=== PATIENT | male | born 1985 | race Caucasian/White ===

== ENCOUNTER 2020-10-08 13:59 | Emergency (ER) | payer OTHER, SELFPAY ==
[2020-10-08 14:19] VITALS: BP 118/81; PULSE 87; RESP 16; TEMP 36.8; O2SAT 97; BMI 36.9
--- NOTE | 2020-10-08 14:28 | W.ED.EXTPRO ---
HPI - Extremity Problem General: Chief complaint: Extremity Injury, Upper Stated complaint: Nail Went into arm/Wanting to check for infection Time Seen by Provider: 10/08/20 14:27 Source: patient Mode of arrival: ambulatory Limitations: no limitations History of Present Illness: HPI Narrative: Patient is a 35 yo male here for evaluation following a nail puncture to his L forearm that occurred just a few hours ago while he was demolishing an old barn. States a board fell onto his arm that had an old nail stuck in it. States the nail punctured on the dorsum of his forearm. Nail/board was removed by patient. Tetanus is not UTD. MD Complaint: extremity pain and extremity swelling Onset (ago): hour(s) Pain Consistency: constant Location: left and upper extremity Radiation: none Relieving factors: immobilization Exacerbating factors: range of motion Associated symptoms: Reports no associated symptoms; Deny fever(s) Review of Systems Const: Denies: fever(s), chills, body aches, fatigue or malaise GI: Denies: nausea or vomiting Musc: Reports: extremity pain and extremity swelling; Denies: joint pain or joint swelling Neuro: Denies: numbness in extremities, weakness in extremities or sensory changes PFSH ED PFSH: Social History (Updated 01/22/20 @ 12:07 by Justine Lockett LPN) Smoking and tobacco status: never smoked Alcohol intake: never Current gender identity: Male Physical Exam Const: COMMON NORMALS: no acute distress, average body habitus, patient oriented x3, no limitations, healthy appearing, alert and well nourished Extremity: OTHER: small puncture kiesha to dorsal mid forearm; very tender all around puncture site; swelling noted; no firmness noted; sensory intact; pain is worse with ROM of his digits; pain is not out of proportion to exam; extremity is warm with normal radial pulse and cap refill Neuro: COMMON NORMALS: patient oriented x3, moves all extremities, no focal motor deficits and no sensory deficits noted SENSORIUM/ORIENTATION: Yes alert Course Vital Signs: Vital signs: Vital Signs Temperature 98.2 F 10/08/20 14:19 Pulse Rate 81 10/08/20 15:31 Respiratory Rate 16 10/08/20 15:31 Blood Pressure 129/83 10/08/20 15:31 Pulse Oximetry 98 10/08/20 15:31 MDM - Extremity (Nontraumatic) MDM Narrative: Medical decision making narrative: Extremity is neurovascularly intact. He has no signs of acute infection or compartment syndrome at this time. XR normal. Tetanus was updated. He will be placed on antibiotics. Wound care discussed at home. Strict return to ED precautions given. Imaging Data^: XR L forearm: Radiologist's impression: [address] [place] [address] XRay Report Signed Patient: Simone Greenfield Unit #: [id number] : 1985 Age/Sex: 35 / M ADM Date: 10/08/20 Loc: ER Room/Bed: Attending Dr: Ordering Provider/Ordering MD: Melanie Tidwell Date of Service: 10/08/20 Procedure(s): XR forearm LT 2V [id number] Accession Number(s): [id number] Report Number: [id number] WS: [id number] Left forearm, AP and lateral views, 10/08/2020 Clinical Data: puncture wound/pain Comparison: None. Findings: No fracture or dislocations are seen. The soft tissues show minimal air on the dorsal distal left forearm. The visualized left wrist and elbow show no obvious abnormalities. No radiopaque foreign body is seen. XR/XR forearm LT 2V [id number] Impression: Negative for fracture or radiopaque foreign body. Dictated By: Kecia Hollins MD Signed By: Kecia Hollins MD Signed Date/Time: 10/08/201553 DD/ 51 Discharge Plan Discharge Patient Disposition: Home Clinical Impression: Puncture wound of forearm, left Qualifiers: Encounter type: initial encounter Qualified Code(s): S51.832A - Puncture wound without foreign body of left forearm, initial encounter Condition: Stable Prescriptions: New cephalexin 500 mg capsule 500 mg PO Q6H 7 Days Qty: 28 RF: 0 No Action levothyroxine 25 mcg capsule 25 mcg PO ONCE RF: 0 zolpidem [Ambien] 5 mg tablet 5 mg PO DAILY RF: 0 bupropion HCl 75 mg tablet 75 mg PO TID RF: 0 pantoprazole 20 mg tablet,delayed release (DR/EC) 20 mg PO DAILY RF: 0 Discharge Orders: Discharge ED (Routine); Ordered 10/08/20 Ordered By: Melanie Tidwell Referrals: Kei Flowers [Primary Care Provider] - Patient Instructions: Puncture Wound (ED) Activity Restrictions/Additional Instructions: As we discussed please fill and begin your antibiotics immediately. You need to return to the emergency department for any redness, swelling, drainage, increased pain, streaking up your arm, fevers. You also need to return for worsening swelling, extreme swelling/tightness, loss of sensation or tingling to your extremity, severe pain with wiggling of your fingers, any coldness or loss of sensation or pallor/paleness to your extremity. Coding Level of Care Code ED Flute Polisher for Chg Fwd Exam Expanded Problem Focused
--- NOTE | 2020-10-08 14:35 | XR_ITS ---
WS: [id number] Left forearm, AP and lateral views, 10/08/2020 Clinical Data: puncture wound/pain Comparison: None. Findings: No fracture or dislocations are seen. The soft tissues show minimal air on the dorsal distal left for earm. The visualized left wrist and elbow show no obvious abnormalities. No radiopaque foreign body is seen. XR/XR forearm LT 2V [id number] Impression: Negative for fracture or radiopaque foreign body.
[2020-10-08 14:56] VITALS: BP 118/88; PULSE 87; RESP 16; O2SAT 99
[2020-10-08] MEDS: tetanus-diphtheria tox (adult) 0.5 mL SDV IM (15:00)
[2020-10-08 15:31] VITALS: BP 129/83; PULSE 81; RESP 16; O2SAT 98
== END 2020-10-08 16:17 | disposition home or self-care (01) ==
PROVIDERS: Emergency Provider Physician Assistant; PCP Family Medicine
DX: S51.832A Puncture wound without foreign body of left forearm, initial encounter (principal); W45.0XXA Nail entering through skin, initial encounter; Z23 Encounter for immunization
CPT/HCPCS: 73090; 90471; 90714; 99283

== ENCOUNTER 2022-09-28 09:27 | Outpatient (CLI) | payer OTHER, SELFPAY ==
--- NOTE | 2022-09-28 09:36 | US_ITS ---
WS: [id number] Gallbladder and right upper quadrant ultrasound, 09/28/2022 Clinical Data: RUQ PAIN/ELEVATED LIVER ENZYMES Comparison: None. Findings: The gallbladder shows no sludge or stone. The wall measures 0.2 cm with no pericholecystic fluid. The common bile duct is 0.5 cm and there are no intrahepatic ductal abnormalities. Liver shows no cysts, masses or dilated intrahepatic ducts. The pancreas is not obscured by overlying bowel gas and no cyst, pseudocyst, or evidence of pancreati tis is noted. Right kidney measures 11.4 cm and no cyst, masses or hydronephrosis can be seen. The aorta and inferior vena cava show no vascular abnormalities. US/US abdomen limited [id number] Impression: Negative gallbladder and right upper quadrant ultrasound.
== END 2022-09-28 09:28 | disposition home or self-care (01) ==
LOC: RAD 09:30
PROVIDERS: PCP Family Medicine; Visit Provider Family Medicine
DX: R10.11 Right upper quadrant pain (principal); R94.5 Abnormal results of liver function studies
CPT/HCPCS: 76705

== ENCOUNTER 2023-11-02 23:20 | Emergency (ER) | payer OTHER, SELFPAY ==
[2023-11-02 23:22] VITALS: BP 166/122; PULSE 116; RESP 19; TEMP 36.7; O2SAT 97; BMI 34.2
--- NOTE | 2023-11-02 23:27 | XRR_ITS ---
PROCEDURE INFORMATION: Exam: XR Chest Exam date and time: 11/02/2023 11:39 PM Age: 38 years old Clinical indication: Pain; Chest pressure; Additional info: Chest pain TECHNIQUE: Imaging protocol: Radiologic exam of the chest. Views: 1 view. COMPARISON: No relevant prior studies available. FINDINGS: Lungs: The lungs are clear. No pulmonary consolidation. Pleural spaces: No pleural effusion or pneumothorax. Heart/Mediastinum: The cardiomediastinal silhouette is within normal limits. Bones/joints: No acute osseous abnormalities are seen. XR/XR chest 1V portable [id number] IMPRESSION: No acute cardiopulmonary disease.
--- NOTE | 2023-11-02 23:28 | ECG_ITS ---
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 Measurements Intervals [place] Rate: 103 P: 47 MD: 152 QRS: -29 QRSD: 100 T: 35 QT: 309 QTc: 406 Interpretive Statements SINUS TACHYCARDIA INCOMPLETE RIGHT BUNDLE BRANCH BLOCK [90+ ms QRS DURATION, TERMINAL R IN V1/V2, 40+ ms S IN I/aVL/V4/V5/V6] SEPTAL MYOCARDIAL INFARCTION , OF INDETERMINATE AGE [40+ ms Q WAVE IN V1/V2] No previous ECG available for comparison Electronically Signed On 11-03-2023 0:39:22 CDT by Prasad Cristobal M.D. [id number]
[2023-11-02] MEDS: aspirin 81 mg Chew Tablet 324 MG PO (23:35)
[2023-11-02 23:46] LABS: Basophils # 0.1 10^3/uL (0.0-0.1); Basophils % 0.7 %; Eosinophils # 0.2 10^3/uL (0.0-0.8); Eosinophils % 2.3 %; Hematocrit 58.9 % (37-53); Lymphocytes # 2.6 10^3/uL (0.8-4.8); Lymphocytes % 31.4 %; Mean Corpuscular HGB Conc 32.6 g/dL (30-55); Mean Corpuscular Hemoglobin 30.1 pg (27-33); Mean Corpuscular Volume 92.3 fl (82-101); Mean Platelet Volume 9.4 fL (7.4-10.4); Neutrophils # 4.43 10^3/uL (1.8-7.7); Neutrophils % 53.4 %; Nucleated Red Blood Cells % 0 %; Platelet Count 236 10^3/cmm (157-399); Red Blood Count 6.38 10^6/uL (3.85-5.65); Red Cell Distribution Width 14.6 % (12.1-15.1); White Blood Count 8.31 10^3/uL (3.29-11.43)
[2023-11-02] MEDS: nitroglycerin 0.4 mg sublingual Tablet 0.400000000000000022 MG SUBLINGUAL (23:54)
[2023-11-03 00:03] VITALS: BP 143/107; PULSE 94; O2SAT 95
[2023-11-03 00:05] LABS: Troponin(5th) Baseline 7 ng/L (0-15)
[2023-11-03 00:06] LABS: Alanine Aminotransferase 27 U/L (0-41); Albumin Level 4.6 g/dL (3.5-5.2); Alkaline Phosphatase 88 U/L (40-130); Anion Gap 15.9 (5-19); Aspartate Amino Transferase 24 U/L (0-40); Blood Urea Nitrogen 10 mg/dL (6-20); C Reactive Protein 3.6 mg/L (0.0-4.9); Calcium 9.5 mg/dL (8.5-10.5); Carbon Dioxide 24 mmol/L (22-29); Chloride 106 mmol/L (98-107); Creatinine Clr Calc Pharmacy 116.5669; Globulin 2.6 g/dL (1.3-4.6); Glomerular Filtration Rate 75.3 mL/min (90-130); Glucose 73 mg/dL (65-115); Lipase 52 U/L (13-60); Osmolality Calculated 292 mOsm/kg (285-295); Potassium 3.9 mmol/L (3.5-5.1); Sodium 142 mmol/L (136-145); Total Bilirubin 0.3 mg/dL (0.15-1.2); Total Protein 7.2 g/dL (6.6-8.7)
[2023-11-03 00:20] LABS: D Dimer 0.23 ug/mLFEU (0-0.59)
[2023-11-03 00:33] VITALS: BP 134/89; PULSE 87; O2SAT 93
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
[2023-11-03 01:00] VITALS: BP 138/99; PULSE 112; O2SAT 94
--- NOTE | 2023-11-03 01:28 | ECG_ITS ---
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 Measurements Intervals [place] Rate: 77 P: 26 MS: 160 QRS: -14 QRSD: 104 T: 30 QT: 346 QTc: 392 Interpretive Statements SINUS RHYTHM WITH SINUS ARRHYTHMIA INCOMPLETE RIGHT BUNDLE BRANCH BLOCK [90+ ms QRS DURATION, TERMINAL R IN V1/V2, 40+ ms S IN I/aVL/V4/V5/V6] NONSPECIFIC ST ELEVATION [0.05+ mV ST ELEVATION] Compared to ECG 11/02/2023 23:24:15 ST (T wave) deviation now present Sinus tachycardia no longer present Myocardial infarct finding no longer present Electronically Signed On 11-03-2023 8:37:20 CDT by Garrick Davila M.D. [id number]
[2023-11-03 02:00] VITALS: BP 125/85; PULSE 77; RESP 16; O2SAT 95
[2023-11-03 02:00] LABS: Glucose Urine UA Norm (Normal); Protein Urine Neg (Negative); Specific Gravity, Urine 1.025 (1.005-1.030); Urine Appearance Clear (CLEAR); Urine Color Yellow (Yellow); pH Urine 6 (5-7)
[2023-11-03 02:01] LABS: Add Urine Culture? No; Bilirubin Urine 1+ (Negative); Blood Urine Neg (Negative); Ketones Urine 1+ (Negative); Leukocyte Esterase Urine Negative (Negative); Mucus Urine 1+ /hpf; Nitrate Urine Negative (Negative); RBC Urine 0-4 /hpf (0-2); Urobilinogen Urine Neg (Negative)
[2023-11-03 02:05] LABS: Amphetamines Screen Urine Negative (Negative); Barbiturates Screen Urine Negative (Negative); Benzodiazepines Screen Urine Negative (Negative); Cocaine Screen Urine Negative (Negative); Opiate Screen Urine Negative (Negative); PCP Screen Urine Negative (Negative); THC Screen Urine Negative (Negative)
[2023-11-03 03:13] VITALS: BP 112/86; PULSE 70; O2SAT 98
== END 2023-11-03 03:16 | disposition home or self-care (01) ==
PROVIDERS: Emergency Provider Emergency Medicine; PCP Family Medicine
DX: R07.89 Other chest pain (principal); I10 Essential (primary) hypertension; D75.1 Secondary polycythemia
CPT/HCPCS: 71045; 80053; 80306; 81001; 83690; 84484; 85025; 85378; 86140; 93005; 99285

== ENCOUNTER 2024-08-11 03:04 | Emergency (ER) | payer OTHER, SELFPAY ==
--- NOTE | 2024-08-11 03:20 | XRR_ITS ---
PROCEDURE INFORMATION: Exam: XR Chest Exam date and time: 08/11/2024 3:22 AM Age: 39 years old Clinical indication: Cough and shortness of breath; Chest discomfort with cough and SOB TECHNIQUE: Imaging protocol: Radiologic exam of the chest. Views: 1 view. COMPARISON: CR XR chest 1V portable [id number] 11/02/2023 11:39 PM FINDINGS: Lungs: Unremarkable. No consolidation. Pleural spaces: Unremarkable. No pleural effusion. No pneumothorax. Heart/Mediastinum: Unremarkable. No cardiomegaly. Bones/joints: Unremarkable. XR/XR chest 1V portable [id number] IMPRESSION: No acute findings.
--- NOTE | 2024-08-11 03:21 | W.ED.SOB ---
HPI - SOB/Dyspnea General: Chief Complaint: Shortness of Breath/Dyspnea Stated Complaint: SOB CP Time Seen by Provider: 08/11/24 03:19 History of Present Illness: HPI Narrative: Patient presents with acute respiratory symptoms that started late last night and continued into this morning. Patient reports waking up with difficulty breathing. There is a history of chronic cough, which is a persistent symptom. Patient has a known history of COPD. Recent exposure history is significant for home renovation activities, specifically bathroom remodeling with demolition work over the past two weeks, with the most recent exposure yesterday and the day before. Patient uses CPAP machine but compliance is inconsistent. No history of asthma reported. No history of fistula. Denies swelling symptoms. Patient does not take Albuterol or other respiratory medications per report. Related Data Previous Rx's ?Medication ?Instructions ?Recorded colchicine 0.6 mg tablet 0.6 mg PO DAILY #3 tabs 07/30/24 prednisone 10 mg tablet 30 mg (3 x 10 mg) PO DAILY 5 days 07/30/24 #15 tabs albuterol sulfate 90 mcg/actuation 2 inh inhalation Q6H PRN shortness 08/11/24 aerosol inhaler (Ventolin HFA) of breath or wheezing #8.5 grams prednisone 20 mg tablet 20 mg PO BID 5 days #10 tabs 08/11/24 Allergies Allergy/AdvReac Type Severity Reaction Status Date / Time No Known Allergies Allergy Verified 07/30/24 09:32 [facility] PFSH: Social History Smoking and tobacco/nicotine status: never used tobacco/nicotine Alcohol intake: never Substance/Drug Use: never Current gender identity: Male Physical Exam Const: COMMON NORMALS: patient oriented x3, alert and well nourished HENMT: COMMON NORMALS: normocephalic HEAD & SCALP: normocephalic Eye: COMMON NORMALS: Equal, round and reactive pupils present, EOMs intact bilaterally and conjunctivae normal CONJUNCTIVA: Yes conjunctivae normal PUPIL: Yes Equal, round and reactive pupils present Neck/C-Spine: COMMON NORMALS: full ROM, no lymphadenopathy, supple, no meningeal signs, no JVD and Thyroid normal THYROID: Thyroid normal Chest: COMMONS NORMALS: normal inspection of the chest and normal palpation of entire chest wall Resp: OTHER: Wheezing throughout Cardio: COMMON NORMALS: no JVD GI: COMMON NORMALS: Normal to inspection, nondistended, normoactive bowel sounds present, Soft to palpation, non-tender, No hepatosplenomegaly present, no masses and no bruits PALPATION: Yes Soft to palpation and Yes No hepatosplenomegaly present : COMMON NORMALS: Yes no CVA tenderness BLADDER/KIDNEY EXAM: Yes no CVA tenderness Back/Pelvis: COMMON NORMALS: no CVA tenderness Extremity: COMMON NORMALS: normal to inspection, full ROM, capillary refill normal, no joint enlargement, no clubbing, cyanosis or edema, no calf tenderness and no pedal edema Neuro: COMMON NORMALS: patient oriented x3 SENSORIUM/ORIENTATION: Yes alert MENINGEAL SIGNS: Yes no meningeal signs Skin: COMMON NORMALS: no rashes or lesions noted, turgor normal and no jaundice GENERAL SKIN EXAM: no rashes or lesions noted and turgor normal Course Vital Signs: Vital signs: Vital Signs Temperature 98 F 08/11/24 03:29 Pulse Rate 99 08/11/24 03:39 Respiratory Rate 18 08/11/24 03:39 Blood Pressure 128/107 08/11/24 03:29 Pulse Oximetry 100 08/11/24 03:39 Oxygen Delivery Me thod Room Air 08/11/24 03:39 MDM - SOB/Dyspnea Medical Decision Making 1. Acute COPD Exacerbation, likely triggered by renovation dust exposure: - Chest X-ray ordered to rule out pneumonia or other acute processes - Plan for IV anti-inflammatory medication administration - Will reassess after initial interventions 2. Poor CPAP Compliance: - Will discuss importance of consistent CPAP usage - Consider referral for COPD management optimization 3. Environmental Exposure: - Patient counseling on importance of dust protection during renovation activities - Recommend wearing appropriate PPE during future renovation work Lab Data 08/11/24 03:27 08/11/24 03:27 Labs/Radiology: Laboratory Results WBC 10.26 10^3/uL (3.29-11.43) 08/11/24 03:27 RBC 5.61 10^6/uL (3.85-5.65) 08/11/24 03:27 Hgb 17.00 g/dL (11.27-16.99) H 08/11/24 03:27 Hct 49.7 % (37-53) 08/11/24 03:27 MCV 88.6 fl (82-101) 08/11/24 03: MCH 30.3 pg (27-33) 08/11/24 03: MCHC 34.2 g/dL (30-55) 08/11/24 03: RDW 14.9 % (12.1-15.1) 08/11/24 03:27 Plt Count 205 10^3/cmm (157-399) 08/11/24 03: MPV 9.4 fL (7.4-10.4) 08/11/24 03:27 Neut % (Auto) 72.9 % 08/11/24 03:27 Lymph % (Auto) 16.7 % 08/11/24 03:27 [place] % (Auto) 7.9 % 08/11/24 03:27 Eos % (Auto) 1.8 % 08/11/24 03: Baso % (Auto) 0.6 % 08/11/24 03: Neut # (Auto) 7.49 10^3/uL (1.8-7.7) 08/11/24 03:27 Lymph # (Auto) 1.7 10^3/uL (0.8-4.8) 08/11/24 03:27 [place] # (Auto) 0.8 10^3/uL (0.2-0.9) 08/11/24 03:27 Eos # (Auto) 0.2 10^3/uL (0.0-0.8) 08/11/24 03: Baso # (Auto) 0.1 10^3/uL (0.0-0.1) 08/11/24 03:27 Nucleated RBC % (auto) 0 % 08/11/24 03: Nucleated RBCs # 0.0 /100WBC 08/11/24 03: Sodium 139 mmol/L (136-145) 08/11/24 03: Potassium 3.8 mmol/L (3.5-5.1) 08/11/24 03: Chloride 104 mmol/L (98-107) 08/11/24 03:27 Carbon Dioxide 22 mmol/L (22-29) 08/11/24 03:27 Anion Gap 16.8 (5-19) 08/11/24 03:27 BUN 15 mg/dL (6-20) 08/11/24 03:27 Creatinine 1.2 mg/dL (0.7-1.2) 08/11/24 03:27 GFR Calculation 67.8 mL/min (90-130) L 08/11/24 03:27 Glucose 114 mg/dL (65-115) 08/11/24 03:27 Calculated Osmolality 290 mOsm/kg (285-295) 08/11/24 03:27 Calcium 9.3 mg/dL (8.5-10.5) 08/11/24 03:27 XR interpretation done by ED provider, pending radiology final review Discharge Plan Discharge Patient Disposition: Home Clinical Impression: Acute exacerbation of chronic obstructive airways disease Condition: Stable Prescriptions: New albuterol sulfate [Ventolin HFA] 90 mcg/actuation HFA aerosol inhaler 2 inh inhalation Q6H PRN (Reason: shortness of breath or wheezing) Qty: 8.5 1RF prednisone 20 mg tablet 20 mg PO BID 5 Days Qty: 10 0RF No Action colchicine 0.6 mg tablet 0.6 mg PO DAILY Qty: 3 0RF prednisone 10 mg tablet 30 mg PO DAILY 5 Days Qty: 15 0RF Rx Instructions: start this medicine tomorrow, Monday Discharge Orders: Discharge ED (Routine); Ordered 08/11/24 Ordered By: Dimas Gooden Referrals: Justine Wiseman MD [Primary Care Provider] - Discharge Diet: Usual diet Discharge Activity: Limit activity as instructed Patient Instructions: Opioid Safety, Pain Management Activity Restrictions/Additional Instructions: 1. Take Rx as directed. 2. Follow up with PCP and / or Pulmonology next week. 3. Return for new or worsening symptoms. Print Language: Barbadian Coding Level of Care Code ED Superintendent Production for Slade Hernandez
[2024-08-11 03:29] VITALS: BP 128/107; PULSE 92; RESP 24; TEMP 36.6; O2SAT 96; BMI 27.8
[2024-08-11 03:35] VITALS: PULSE 95; RESP 18; O2SAT 97
[2024-08-11 03:35] LABS: Basophils # 0.1 10^3/uL (0.0-0.1); Basophils % 0.6 %; Eosinophils # 0.2 10^3/uL (0.0-0.8); Eosinophils % 1.8 %; Hematocrit 49.7 % (37-53); Lymphocytes # 1.7 10^3/uL (0.8-4.8); Lymphocytes % 16.7 %; Mean Corpuscular HGB Conc 34.2 g/dL (30-55); Mean Corpuscular Hemoglobin 30.3 pg (27-33); Mean Corpuscular Volume 88.6 fl (82-101); Mean Platelet Volume 9.4 fL (7.4-10.4); Monocytes # 0.8 10^3/uL (0.2-0.9); Monocytes % 7.9 %; Neutrophils # 7.49 10^3/uL (1.8-7.7); Neutrophils % 72.9 %; Nucleated Red Blood Cells % 0 %; Platelet Count 205 10^3/cmm (157-399); Red Blood Count 5.61 10^6/uL (3.85-5.65); Red Cell Distribution Width 14.9 % (12.1-15.1); White Blood Count 10.26 10^3/uL (3.29-11.43)
[2024-08-11 03:39] VITALS: PULSE 99; RESP 18; O2SAT 100
[2024-08-11 03:52] LABS: Anion Gap 16.8 (5-19); Blood Urea Nitrogen 15 mg/dL (6-20); Calcium 9.3 mg/dL (8.5-10.5); Carbon Dioxide 22 mmol/L (22-29); Chloride 104 mmol/L (98-107); Creatinine Clr Calc Pharmacy 96.1766; Glomerular Filtration Rate 67.8 mL/min (90-130); Glucose 114 mg/dL (65-115); Osmolality Calculated 290 mOsm/kg (285-295); Potassium 3.8 mmol/L (3.5-5.1); Sodium 139 mmol/L (136-145)
[2024-08-11] MEDS: methylPREDNISolone sod succ 40 mg/mL INJ IVP (04:07)
[2024-08-11] MEDS: ketorolac 30 mg/mL INJ 15 MG IVP (04:38)
[2024-08-11 04:43] LABS: PCO2 VBG 28.7 mmHg (41-51); Venous Blood Gas Hematocrit 54.9 % (42-52); pH VBG 7.52 (7.32-7.42)
[2024-08-11 04:44] LABS: Blood Gas Sample Type venous; HCO3 VBG 23.4 mmol/L (24-28)
[2024-08-11 05:00] VITALS: BP 112/58; PULSE 98; RESP 18; O2SAT 93
--- NOTE | 2024-08-11 08:54 | ECG_ITS ---
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1985 Requested By: Dimas Gooden Order Number: [id number] Abraham MD: RENETTA PANTOJA Measurements Intervals [place] Rate: 91 P: 0 TN: 0 QRS: -53 QRSD: 94 T: 161 QT: 325 QTc: 401 Interpretive Statements ATRIAL FIBRILLATION INDETERMINATE AXIS POSSIBLE RIGHT VENTRICULAR CONDUCTION DELAY [RSR (QR) IN V1/V2] LATERAL MYOCARDIAL INFARCTION , OF INDETERMINATE AGE [40+ ms Q WAVE AND/OR ST/T ABNORMALITY IN I/aVL/V5/V6] Compared to ECG 11/03/2023 01:11:01 Indeterminate axis now present Myocardial infarct finding now present Sinus rhythm no longer present Sinus arrhythmia no longer present Incomplete right bundle-branch block no longer present ST (T wave) deviation no longer present Electronically Signed On 08-12-2024 18:18:19 CDT by RENETTA PANTOJA [email or web address]
== END 2024-08-11 05:01 | disposition home or self-care (01) ==
PROVIDERS: Emergency Provider Family Medicine; PCP Family Medicine
DX: J44.1 Chronic obstructive pulmonary disease with (acute) exacerbation (principal)
CPT/HCPCS: 36415; 71045; 80048; 82803; 85025; 93005; 94640; 96374; 96375; 99285; J1885; J2919

== ENCOUNTER 2025-04-02 06:49 | Outpatient (CLI) | payer OTHER, SELFPAY ==
--- NOTE | 2025-04-02 07:07 | MR_ITS ---
WS: [id number] MRI RIGHT SHOULDER HISTORY: NECK AND RT SHOULDER PAIN COMPARISON: None available. TECHNIQUE: Multiplanar sequences of the shoulder joint are submitted. Very minimal AC joint arthritis. No significant subacromial impingement. No os acromion. Normal position of the biceps tendon in the bicipital groove. There is a small subchondral cyst at the base of the bicipital groove. No muscle atrophy or edema. No tendon tear is identified. There is mild tendinopathy in the distal supraspinatus. Thickening and increased signal in the biceps tendon as it extends through the rotator cuff interval towards the coracoid. Thickened biceps tendon. Coracohumeral ligament is identified and normal. Superior glenohumeral ligament is not well identified. There is some mild thickening of soft tissue at the rotator cuff interval with edema. No labral tear identified. MR/MR shoulder RT wo con* [id number] IMPRESSION: 1. No rotator cuff tear. Mild distal supraspinatus tendinopathy. 2. Mild AC joint arthritis. 3. Abnormal rotator cuff interval. Thickened heterogeneous biceps tendon throu gh the rotator cuff interval. Coracohumeral ligament is normal. Poorly visualiz ed superior glenohumeral ligament. Suspect biceps tendinopathy and partial tear of the rotator cuff interval as there is a small amount of fluid present in th e interval.
--- NOTE | 2025-04-02 07:09 | MR_ITS ---
WS: [id number] MRI CERVICAL SPINE NONCONTRAST HISTORY: NECK AND RT SHOULDER PAIN COMPARISON: None available. Technique: Multiplanar, multisequence noncontrast imaging of the cervical spine. Normal cervical alignment with no compression fracture or significant disc space narrowing. Signal within the cervical cord is normal. Visualized posterior fossa is unremarkable. C2-C3: Normal. C3-C4: Tiny central disc protrusion. No stenosis. C4-C5: Small foraminal osteophytes. No stenosis. C5-C6: Mild disc bulging and small foraminal osteophytes. No stenosis. C6-C7: Very mild disc bulging and foraminal osteophytes. Mild facet arthritis. No stenosis. C7-T1: No stenosis. RIGHT foraminal nerve root sleeve diverticulum measures 4 mm. Paraspinal soft tissue are normal. MR/MR cervical spin wo con* [id number] IMPRESSION: 1. No marrow edema or acute fracture. 2. No significant central or foraminal stenosis. 3. Very small foraminal osteophytes at C4-5 through C6-7.
== END 2025-04-02 06:50 | disposition home or self-care (01) ==
LOC: RAD 06:51
PROVIDERS: PCP Family Medicine; Visit Provider Nurse Practitioner Family
DX: M25.511 Pain in right shoulder (principal); M25.78 Osteophyte, vertebrae; M50.323 Other cervical disc degeneration at C6-C7 level; M47.812 Spondylosis without myelopathy or radiculopathy, cervical region; M50.322 Other cervical disc degeneration at C5-C6 level; M19.011 Primary osteoarthritis, right shoulder; M75.102 Unspecified rotator cuff tear or rupture of left shoulder, not specified as traumatic; M75.101 Unspecified rotator cuff tear or rupture of right shoulder, not specified as traumatic
CPT/HCPCS: 72141; 73221

== ENCOUNTER → 2025-05-12 13:55 | Outpatient (BNVA) | payer OTHER, SELFPAY | PROVIDERS: PCP Family Medicine; Visit Provider Orthopaedic Surgery | DX: M25.511 Pain in right shoulder (principal); G89.29 Other chronic pain; S46.211A Strain of muscle, fascia and tendon of other parts of biceps, right arm, initial encounter; X50.9XXA Other and unspecified overexertion or strenuous movements or postures, initial encounter | CPT/HCPCS: 99204 ==